=== PATIENT | female | born 2000 | race Caucasian/White ===

== ENCOUNTER 2021-06-17 16:01 | Emergency (ER) | payer SELFPAY ==
--- OUTSIDE RECORDS SUMMARY | 2021-06-17 16:05 | XMS REPORT | Continuity of Care Document ---
:2000 Author Organization [facility] t Address [address] [place] [address] Care Team Providers Name Role Phone Raju_P Attending Clinician Unavailable VANAPHAN Attending Clinician Unavailable Raju_P Admitting Clinician Unavailable Payers Payer Name Policy Type Policy Number Effective Date Expiration Date S [facility] [id number] 2018 [employer] [place] 00:00:00 (MEDICAID HMO) [facility] [id number] 2018 00:00:00 Problems This patient has no known problems. Allergies, Adverse Reactions, Alerts Allergy Allergy Status Severity Reaction(s) Onset Inactive Treating Comm ents Source Name Type Date Date Clinician NO KNOWN Drug Active Univers ALLERGIE Class [facility] Social History Smoking Status Start Date Stop Date Source Never Smoker [facility] Medications This patient has no known medications. Vital Signs Vital Name Observation Time Observation Value Comments Source BP Diastolic 2020-01-30 00:00:00 80 mm[Hg] [facility] Height 2020-01-30 00:00:00 65.5 [in_i] [facility] BMI (Body Mass 2020-01-30 00:00:00 30.5 kg/m2 [facility] BP Systolic 2020-01-30 00:00:00 127 mm[Hg] [facility] Body Weight 2020-01-30 00:00:00 2976 [oz_av] [facility] BP Diastolic 2019-07-01 00:00:00 82 mm[Hg] [facility] Height 2019-07-01 00:00:00 65.5 [in_i] [facility] BMI (Body Mass 2019-07-01 00:00:00 30.3 kg/m2 [facility] Index) Group BP Systolic 2019-07-01 00:00:00 125 mm[Hg] [facility] Body Weight 2019-07-01 00:00:00 185 [lb_av] [facility] BP Diastolic 2019-05-26 00:00:00 74 mm[Hg] [facility] Height 2019-05-26 00:00:00 65.5 [in_i] [facility] BMI (Body Mass 2019-05-26 00:00:00 30.3 kg/m2 [facility]) Group BP Systolic 2019-05-26 00:00:00 112 mm[Hg] [facility] Body Weight 2019-05-26 00:00:00 184.9 [lb_av] [facility] BP Diastolic 2019-04-13 00:00:00 77 mm[Hg] [facility] Height 2019-04-13 00:00:00 65.5 [in_i] [facility] BMI (Body Mass 2019-04-13 00:00:00 30 kg/m2 [facility] Index) Group BP Systolic 2019-04-13 00:00:00 115 mm[Hg] [facility] Body Weight 2019-04-13 00:00:00 182.9 [lb_av] [facility] Procedures Procedure Date / Time Performing Clinician Source Performed TYMPANOMETRY 2019-07-01 00:00:00 [facility] TYMPANOMETRY 2019-05-26 00:00:[facility], internal auditory 2019-05-26 00:00:00 [facility] Medical canal, w/o contrast Group TYMPANOMETRY 2019-04-13 00:00:00 [facility] Plan of Care Planned Activity Planned Date Details Comments Source Diagnostic Test Pending 2020-01-30 CBC w/ auto diff [facility] 00:00:00 [code = CBC w/ Group auto diff] Diagnostic Test Pending 2020-01-30 hCG, qualitative, [facility] 00:00:00 serum [code = Group hCG, qualitative, serum] Diagnostic Test Pending 2020-01-30 BMP, serum or [facility] 00:00:00 plasma [code = Group BMP, serum or plasma] Diagnostic Test Pending 2020-01-30 TSH, serum or [facility] 00:00:00 plasma [code = Group TSH, serum or plasma] Instructions [facility] Encounters Start End Encounter Admission Attending Care Care Encounter Source Date/Time Date/Time Type Type Clinicians Facility Department ID 2020-01-30 2020-01-30 [facility] [id number] [facility] 04:29:00 04:29:00 [facility] 2020-01-30 2020-01-30 Stephy [place] - [id number] [facility] 00:00:00 00:00:00 Discovery darrin Tapia 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 2019-10-31 2019-10-31 Outpatient Mercedes DEWITT, [facility] [id number] [facility] 14:15:00 14:15:00 KARIME linden [facility] 2019-07-01 2019-07-01 Jayden ROB[place]SON [place] - [id number] [facility] 00:00:00 00:00:00 MD Debo: Discovery clifford [address] [place] [phone] , Ph. 2019-05-26 2019-05-26 Jayden ROB[place]SON [place] - [id number] [facility] 00:00:00 00:00:00 MD Debo: Discovery clifford [address] [place], [place] [address]rda - [address] [phone] , Ph. 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 Results Test Description Test Time Test Comments Results Result Comments Source tympanogram 2019-07-01 10:57:21 Test Item Value Reference Range Interpretation Comme nts Right (test code = Right) Type B Curve Flat Left (test code = Left) Type C Peak is on Left [facility]2019-10-02 11:18:56 Test Item Value Reference Range Interpretation Comments Right (test code = Right) Type B Curve Flat Left (test code = Left) Type A Normal [facility]2019-10-02 11:18:56 Test Item Value Reference Range Interpretation Comments Right (test code = Right) Type B Curve Flat Left (test code = Left) Type A Normal [facility]
[2021-06-17] MEDS ORDERED: VALACYCLOVIR 500 MG TAB ONE (16:57)
[2021-06-17] MEDS ORDERED: predniSONE 20 MG TAB ONE (16:57)
--- NOTE | 2021-06-17 17:24 | ER ---
Nurse's Notes [facility] Name: Lizzie Damon Age: 20 yrs Sex: Female : 2000 Arrival Date: 06/17/2021 Time: 16:04 Bed 9 Private MD: Diagnosis: Daniels's palsy Presentation: 06/17 16:12 Chief complaint: Patient states: for two days has not been able to close Right eye vg1 completely and is unable to hold fluids without it seeping out of mouth. Denies headache or NVD. Coronavirus screen: Vaccine status: Patient reports being unvaccinated. Client denies travel out of the [place] in the last 14 days. Ebola Screen: Patient negative for fever greater than or equal to 101.5 degrees Fahrenheit, and additional compatible Ebola Virus Disease symptoms. Initial Sepsis Screen: Does the patient meet any 2 criteria? No. Patient's initial sepsis screen is negative. Does the patient have a suspected source of infection? No. Patient's initial sepsis screen is negative. Risk Assessment: Do you want to hurt yourself or someone else? Patient reports no desire to harm self or others. Onset of symptoms was June 15, 2021. 16:12 Method Of Arrival: Ambulatory vg1 16:12 Acuity: VENKAT 3 vg1 Triage Assessment: 16:15 General: Appears in no apparent distress. comfortable, Behavior is calm, cooperative. vg1 Pain: Denies pain. 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 Gait is steady, Speech is normal, Denies weakness blurred vision dizziness, headache photophobia. 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 - Social history:: Smoking status: Patient denies any tobacco usage or history of. - Family history:: not pertinent. Screenin:34 Abuse screen: Denies threats or abuse. Denies injuries from another. Nutritional ld1 screening: No deficits noted. Tuberculosis screening: No symptoms or risk factors identified. Fall Risk None identified. Vital Signs: 16:12 BP 123 / 64; Pulse 90; Resp 18; Temp 98.3(O); Pulse Ox 100% ; Weight 84.82 kg; Height 5 vg1 ft. 6 in. (167.64 cm); Pain 0/10; 16:12 Body Mass Index 30.18 (84.82 kg, 167.64 cm) vg1 ED Course: 16:04 Patient arrived in ED. kc5 16:15 Triage completed. vg1 16:15 Arm band placed on. vg1 16:27 Roney Griggs MD is Attending Physician. [facility] 16:55 Beth Canchola, RN is Primary Nurse. ld1 17:23 Cortez Mccrary MD is Referral Physician. [facility] 17:34 No provider procedures requiring assistance completed. Patient did not have IV access ld1 during this emergency room visit. 17:35 Patient has correct armband on for positive identification. Placed in gown. Bed in low ld1 position. Call light in reach. Side rails up X2. Pulse ox on. NIBP on. Door closed. Noise minimized. Warm blanket given. Administered Medications: 16:59 Drug: valACYclovir 1000 mg Route: PO; ld1 17:00 Follow up: Response: No adverse reaction ld1 16:59 Drug: predniSONE 60 mg Route: PO; ld1 16:59 Follow up: Response: No adverse reaction ld1 Outcome: 17:23 Discharge ordered by . [facility] 17:34 Discharged to home ambulatory, with family. ld1 17:34 Condition: stable 17:34 Discharge instructions given to patient, family, Instructed on discharge instructions, follow up and referral plans. medication usage, Demonstrated understanding of instructions, follow-up care, medications, Prescriptions given X 3. 17:35 Patient left the ED. ld1 Signatures: Roney Griggs MD MD cha Garcia, Victoria RN RN [facility] Beth Canchola, CHRISTINE RN magda Ankita Perea 5 Corrections: (The following items were deleted from the chart) 16:16 16:15 PSHx: None; vg1 vg1
--- NOTE | 2021-06-17 17:24 | EDPHYS ---
Physician Documentation [facility] Name: Lizzie Damon Age: 20 yrs Sex: Female : 2000 Arrival Date: 06/17/2021 Time: 16:04 Bed 9 Private MD: ED Physician Roney Griggs HPI: 06/17 17:15 This 20 yrs old Female presents to ER via Ambulatory with complaints of meghana Numbness Of Face. 17:15 The patient's problem is reported as a facial droop, on right, paresthesias, in right meghana side of face. Onset: The symptoms/episode began/occurred today, yesterday. Duration: The episode is continuous. Context: the episode(s) was witnessed, by family, symptoms became apparent yesterday. The symptoms are alleviated by nothing. The symptoms are aggravated by nothing. Associated signs and symptoms: The patient has no apparent associated signs or symptoms. Severity of symptoms: At their worst the symptoms were mild in the emergency department the symptoms are unchanged. Patient's baseline: Neuro: alert and fully oriented, alert but confused. The patient has not experienced similar symptoms in the past. 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 - Social history:: Smoking status: Patient denies any tobacco usage or history of. - Family history:: not pertinent. ROS: 17:15 Constitutional: Negative for fever, chills, and weight loss, Eyes: Negative for injury, meghana pain, redness, and discharge, ENT: Negative for injury, pain, and discharge, Neck: Negative for injury, pain, and swelling, Cardiovascular: Negative for chest pain, palpitations, and edema, Respiratory: Negative for shortness of breath, cough, wheezing, and pleuritic chest pain, Abdomen/GI: Negative for abdominal pain, nausea, vomiting, diarrhea, and constipation, Back: Negative for injury and pain, : Negative for injury, bleeding, discharge, and swelling, MS/Extremity: Negative for injury and deformity, Skin: Negative for injury, rash, and discoloration, Psych: Negative for depression, anxiety, suicide ideation, homicidal ideation, and hallucinations, Allergy/Immunology: Negative for hives, rash, and allergies, Endocrine: Negative for neck swelling, polydipsia, polyuria, polyphagia, and marked weight changes, Hematologic/Lymphatic: Negative for swollen nodes, abnormal bleeding, and unusual bruising. 17:15 Neuro: Positive for weakness, of the forehead, right eye, right cheek, mouth and right jaw. Exam: 17:15 Constitutional: This is a well developed, well nourished patient who is awake, alert, meghana and in no acute distress. Head/Face: Normocephalic, atraumatic. Eyes: Pupils equal round and reactive to light, extra-ocular motions intact. Lids and lashes normal. Conjunctiva and sclera are non-icteric and not injected. Cornea within normal limits. Periorbital areas with no swelling, redness, or edema. ENT: Nares patent. No nasal discharge, no septal abnormalities noted. Tympanic membranes are normal and external auditory canals are clear. Oropharynx with no redness, swelling, or masses, exudates, or evidence of obstruction, uvula midline. Mucous membranes moist. Neck: Trachea midline, no thyromegaly or masses palpated, and no cervical lymphadenopathy. Supple, full range of motion without nuchal rigidity, or vertebral point tenderness. No Meningismus. Chest/axilla: Normal chest wall appearance and motion. Nontender with no deformity. No lesions are appreciated. Cardiovascular: Regular rate and rhythm with a normal S1 and S2. No gallops, murmurs, or rubs. Normal PMI, no JVD. No pulse deficits. Respiratory: Lungs have equal breath sounds bilaterally, clear to auscultation and percussion. No rales, rhonchi or wheezes noted. No increased work of breathing, no retractions or nasal flaring. Abdomen/GI: Soft, non-tender, with normal bowel sounds. No distension or tympany. No guarding or rebound. No evidence of tenderness throughout. Back: No spinal tenderness. No costovertebral tenderness. Full range of motion. Skin: Warm, dry with normal turgor. Normal color with no rashes, no lesions, and no evidence of cellulitis. MS/ Extremity: Pulses equal, no cyanosis. Neurovascular intact. Full, normal range of motion. Psych: Awake, alert, with orientation to person, place and time. Behavior, mood, and affect are within normal limits. 17:15 Neuro: Orientation: is normal, appropriate for stated age, no acute changes, Mentation: is normal, appropriate for stated age, no acute changes, Memory: is normal, appropriate for stated age, no acute changes, Cranial nerves: facial droop noted on right, with forehead involved. Motor: is normal, is grossly normal based on the patient's age, no acute changes, moves all fours, strength is normal, Sensation: is normal, Gait: is steady, appropriate for age, Deep tendon reflexes are normal, Babinski testing is normal, seizure activity, is not displayed by the patient. Vital Signs: 16:12 BP 123 / 64; Pulse 90; Resp 18; Temp 98.3(O); Pulse Ox 100% ; Weight 84.82 kg; Height 5 vg1 ft. 6 in. (167.64 cm); Pain 0/10; 16:12 Body Mass Index 30.18 (84.82 kg, 167.64 cm) vg1 MDM: 16:27 Patient medically screened. meghana Administered Medications: 16:59 Drug: valACYclovir 1000 mg Route: PO; ld1 17:00 Follow up: Response: No adverse reaction ld1 16:59 Drug: predniSONE 60 mg Route: PO; ld1 16:59 Follow up: Response: No adverse reaction ld1 Disposition Summary: 06/17/21 17:23 Discharge Ordered Location: Home meghana Problem: new meghana Symptoms: have improved meghana Condition: Stable meghana Diagnosis - Daniels's palsy meghana Followup: meghana - With: Private Physician - When: 2 - 3 days - Reason: Recheck today's complaints, Continuance of care, Re-evaluation by your physician Followup: meghana - With: Cortez Mccrary MD - When: 2 - 3 days - Reason: Recheck today's complaints, Re-evaluation by your physician Discharge Instructions: - Discharge Summary Sheet meghana - Daniels Palsy, Adult meghana Forms: - Medication Reconciliation Form meghana - Thank You Letter meghana - Antibiotic Education meghana - Prescription Opioid Use meghana Prescriptions: - Artificial Tears (cmc) - instill 1 application by OPHTHALMIC route 8 times per day; 10 milliliter; meghana Refills: 0, Product Selection Permitted - Valtrex 1 gram Oral tablet - take 1 tablet by ORAL route 3 times per day; 21 tablet; Refills: 0, Product meghana Selection Permitted - Prednisone 20 mg Oral Tablet - take 3 tablets by ORAL route once daily for 5 days; 15 tablet; Refills: 0, meghana Product Selection Permitted Signatures: Roney Griggs MD MD cha Garcia, Victoria RN RN vg1 Beth Canchola RN RN ld1 Corrections: (The following items were deleted from the chart) 16:16 16:15 PSHx: None; vg1 vg1
[2021-06-17 18:04] VITALS: BP 123/64; TEMP 98.3; O2SAT 100
== END 2021-06-17 17:35 | disposition home or self-care (01) ==
LOC: ER 16:01
DX: G51.0 Bell's palsy (principal)
CPT/HCPCS: 99283; J7512